=== PATIENT | female | born 1945 ===

== ENCOUNTER → 2020-06-13 | Outpatient (CLI) | payer OTHER ==
[2020-06-13 12:29] LABS: ABSOLUTE RETIC # 107 10e9/uL (24-90); RETICULOCYTE % 4.79 % (0.50-2.40)
[2020-06-13 12:44] LABS: BASOPHILS % (MANUAL) 1 %; ELLIPT/OVALOCYTES SLIGHT; HYPOCHROMASIA MODERATE; LYMPHOCYTES % (MANUAL) 16 %; MONOCYTES % (MANUAL) 2 %; NEUTROPHILS % (MANUAL) 81 %; POLYCHROMASIA MODERATE
== END ==
LOC: LABNPT 12:18
PROVIDERS: ATTEND Nurse Practitioner Family
DX: Z01.89 Encounter for other specified special examinations (principal)
CPT/HCPCS: 85007; 85045

== ENCOUNTER → 2020-06-14 | Outpatient (CLI) | payer OTHER | LOC: GIR 16:00 | PROVIDERS: ATTEND Surgery | DX: Z01.89 Encounter for other specified special examinations (principal) | CPT/HCPCS: 87101 ==